=== PATIENT | female | born 1960 | race Caucasian/White ===

== ENCOUNTER 2022-06-17 08:39 | Outpatient (CLI) | payer BC ==
[2022-06-17] MEDS ORDERED: Iopamidol-370 76% 500 ML 1 ML ONE (13:45)
== END 2022-06-17 08:40 | disposition home or self-care (01) ==
LOC: BICCT 08:39
PROVIDERS: ATTEND Internal Medicine
DX: R10.84 Generalized abdominal pain (principal); K22.89 Other specified disease of esophagus
CPT/HCPCS: 74177; Q9967

== ENCOUNTER 2023-11-16 14:21 | Outpatient (CLI) | payer MEDICARE | END 2023-11-16 14:22 | disposition home or self-care (01) | LOC: BICMAMMO 14:21 | PROVIDERS: ATTEND Registered Nurse | DX: Z12.31 Encounter for screening mammogram for malignant neoplasm of breast (principal); Z13.820 Encounter for screening for osteoporosis; Z78.0 Asymptomatic menopausal state; Z80.3 Family history of malignant neoplasm of breast; M85.89 Other specified disorders of bone density and structure, multiple sites | CPT/HCPCS: 77063; 77067; 77080 ==